=== PATIENT | female | born 1945 | race Caucasian/White ===

== ENCOUNTER 2016-06-01 12:33 | Emergency (ER) | payer OTHER, BC ==
[~2016-06-01] VITALS: Ht 162.6 cm; Wt 109.0 kg
[~2016-06-01 12:33] MED LIST: ADVIL200 MG PO; CLARITIN10 M3 PO; KENALOG,ARISTOC80 GM TP; LOPRESSOR25 MG PO; METFORMIN HCL500 MG PO
[2016-06-01] MEDS ORDERED: LISINOPRIL5 MG PO ×2 (13:11→13:12)
[2016-06-01] MEDS ORDERED: TESSALON PERLE100 MG PO (13:14)
[2016-06-01] MEDS ORDERED: ALEVE220 M2 PO (13:18)
[2016-06-01] MEDS ORDERED: PROMETHAZINE V180 ML PO (13:20)
[2016-06-01 14:28] LABS: MCH 27.8 PG (29.0-34.0); MCHC 34.1 G/DL (30.0-36.0); MCV 81.4 FL (83-99); MEAN PLAT.VOLUME 10.7 uM^3 (9.5-12.4); PLATELET COUNT 161 K/uL (156-360); RBC DIS.WIDTH-CV 13.7 % (11.8-14.6); RBC DIS.WIDTH-SD 39.6 % (39-53); RED BLOOD COUNT 4.79 M/uL (3.80-5.20); WHITE BLOOD COUNT 4.6 K/uL (4.1-10.2)
[2016-06-01 14:30] LABS: CHLORIDE 104 mEq/L (99-109); POTASSIUM 4.1 mEq/L (3.7-5.4); SODIUM 138 mEq/L (136-147)
[2016-06-01 14:32] LABS: GLUCOSE 190 mg/dL (70-99)
[2016-06-01 14:33] LABS: ANION GAP 10 MEQ/L (2-14)
[2016-06-01 14:36] LABS: GFR ESTIMATE (CALCULATED) > 59 mL/min/
[2016-06-01 14:37] LABS: UREA NITROGEN (BUN) 11 mg/dL (9-23)
[2016-06-01 14:39] LABS: TROP-I INTERPRETATION NEGATIVE; TROPONIN-I < 0.01 ng/mL (0.0-0.30)
[2016-06-01] MEDS ORDERED: ANTIVERT25 MG PO (15:06)
[2016-06-01 15:07] LABS: ADD MIUA? NO; BILIRUBIN NEGATIVE; BLOOD NEGATIVE; COLOR PALE STRAW ((YELLOW)); GLUCOSE (STRIP) NEGATIVE; KETONES TRACE; LEUKOCYTES NEGATIVE; NITRITE NEGATIVE; PROTEIN (STRIP) NEGATIVE; SPECIFIC GRAVITY 1.001 (1.000-1.030); UCUL ADDED? NO; UROBILINOGEN 0.2 MG/DL (0.2-1.0)
[2016-06-01 15:37] VITALS: BP 200/77
== END 2016-06-01 15:38 | disposition home or self-care (01) ==
LOC: EME → EDBD 12:33 → EME 15:38
PROVIDERS: Emergency Medicine
DX: R42 Dizziness and giddiness (principal); I51.7 Cardiomegaly; Z85.828 Personal history of other malignant neoplasm of skin
CPT/HCPCS: 71010; 80048; 81003; 84484; 85027; 99281; 99285; J7030